=== PATIENT | male | born 1980 | race African-American/Black ===

== ENCOUNTER 2016-12-30 06:12 | Emergency (ER) | payer SELFPAY ==
[~2016-12-30] VITALS: Ht 172.7 cm; Wt 77.2 kg
[2016-12-30] MEDS ORDERED: IBUPROFEN600 MG PO (07:38)
[2016-12-30 07:47] VITALS: BP 137/110
== END 2016-12-30 07:56 | disposition home or self-care (01) | DRG 563 ==
LOC: ED 06:12
DX: S63.501A Unspecified sprain of right wrist, initial encounter (principal); S43.401A Unspecified sprain of right shoulder joint, initial encounter; S16.1XXA Strain of muscle, fascia and tendon at neck level, initial encounter; W17.89XA Other fall from one level to another, initial encounter; Y93.01 Activity, walking, marching and hiking; Y92.410 Unspecified street and highway as the place of occurrence of the external cause

== ENCOUNTER 2017-02-14 22:30 | Emergency (ER) | payer SELFPAY ==
[~2017-02-14] VITALS: Ht 172.7 cm; Wt 80.8 kg
[~2017-02-14 22:30] MED LIST: IBUPROFEN600 MG PO
[2017-02-15] MEDS ORDERED: AMOXICILLIN500 MG PO (01:22)
[2017-02-15 01:35] VITALS: BP 146/80
== END 2017-02-15 01:35 | disposition home or self-care (01) | DRG 605 ==
LOC: ED 22:30
PROC: 0HQEXZZ Repair Left Lower Arm Skin, External Approach (ICD-10-PCS; principal; 2017-02-14)
DX: S51.812A Laceration without foreign body of left forearm, initial encounter (principal); Y00.XXXA Assault by blunt object, initial encounter; Y92.009 Unspecified place in unspecified non-institutional (private) residence as the place of occurrence of the external cause